=== PATIENT | male | born 1940 | race Caucasian/White ===

== ENCOUNTER 2018-01-28 13:59 | Emergency (ER) | payer SELFPAY ==
[2018-01-28 14:07] VITALS: BMI 27.4
[2018-01-28 15:26] LABS: BASO % 0.2 % (0.0-2.0); EOS # 0.2 K/uL (0.0-0.7); HEMOGLOBIN 10.8 g/dL (12.0-18.0); LYMPH # 1.6 K/uL (1.0-4.3); LYMPH % 36.5 % (20.0-40.0); MEAN CORPUSCULAR HEMOGLOBIN 22.5 pg (27.0-31.0); MEAN CORPUSCULAR HGB CONC 31.7 g/dL (33.0-37.0); MEAN PLATELET VOLUME 10.2 fL (7.2-11.7); MONO # 0.4 K/uL (0.0-0.8); MONO % 10.1 % (0.0-10.0); NEUT # 2.2 K/uL (1.8-7.0); NEUT % 49.2 % (50.0-75.0); RBC 4.81 Mil/uL (4.40-5.90); RED CELL DISTRIBUTION WIDTH 13.8 % (11.5-14.5); WHITE BLOOD COUNT 4.5 K/uL (4.8-10.8)
[2018-01-28 15:34] LABS: INR 1.2; PROTHROMBIN TIME 12.8 SECONDS (9.7-12.2)
[2018-01-28 15:36] LABS: ALB/GLOB RATIO 1.3 (1.0-2.1); ALBUMIN 4.4 g/dL (3.5-5.0); ALT/SGPT 22 U/L (21-72); AST/SGOT 20 U/L (17-59); BLOOD UREA NITROGEN 20 mg/dL (9-20); CALCIUM 9.2 mg/dl (8.6-10.4); GFR AFRICAN-AMERICAN > 60; GFR NON-AFRICAN AMERICAN > 60
[2018-01-28 15:45] LABS: SQUAMOUS EPITHIAL < 1 /hpf (0-5); URINE BILIRUBIN NEGATIVE (NEGATIVE); URINE BLOOD 1+ (NEGATIVE); URINE CLARITY Clear (Clear); URINE COLOR Yellow (YELLOW); URINE GLUCOSE (UA) NORMAL (Normal); URINE LEUKOCYTE ESTERASE NEG Leu/uL (Negative); URINE PROTEIN NEGATIVE (NEGATIVE); URINE UROBILINOGEN NORMAL mg/dL (0.2-1.0)
[2018-01-28 15:46] LABS: B-TYPE NATRIURETIC PEPTIDE 157 pg/mL (0-900)
[2018-01-28 16:28] VITALS: TEMP 98.8
--- NOTE | 2018-01-28 16:31 | RAD ---
HISTORY: SOB COMPARISON: Shortness of breath. TECHNIQUE: Chest PA and lateral FINDINGS: LUNGS: Increased interstitial markings which may represent interstitial edema. PLEURA: No significant pleural effusion identified. No pneumothorax apparent. CARDIOVASCULAR: Cardiomegaly. Likely interstitial edema. OSSEOUS STRUCTURES: No significant abnormalities. VISUALIZED UPPER ABDOMEN: Normal. OTHER FINDINGS: None. IMPRESSION: Cardiomegaly 80 and likely acute CHF with mild interstitial edema.
--- NOTE | 2018-01-28 16:47 | C.PDOC ---
History Of Present Illness 77 y/o male presents to the ED complaining of 3 days of lower extremity edema, described as symmetrical. No history of prior lower extremity swelling in the past. Of note, patient is here visiting from [place] for a few months, and just arrived in the [place] He has no local primary doctor. Otherwise patient denies any chest pain, SOB, dizziness, weakness, headache, visual changes, fever, chills, nausea, vomiting, or other complaints. Family notes that patient's PMHx includes diabetes mellitus, for which he is compliant with medications but does not regularly check sugar. Time Seen by Provider: 01/28/18 14:40 Chief Complaint (Nursing): Lower Extremity Problem/Injury History Per: Family (sons at bedside, interpreting in Upper Sorbian) History/Exam Limitations: no limitations Onset/Duration Of Symptoms: Days (x3) Current Symptoms Are (Timing): Still Present Severity: None Pain Scale Rating Of: 0 Recent travel outside of the [place]: Yes ([place]) Past Medical History Reviewed: Historical Data, Nursing Documentation, Vital Signs Vital Signs: Last Vital Signs Temp 98.8 F 01/28/18 16:28 Pulse 73 01/28/18 16:28 Resp 16 01/28/18 16:28 BP 113/64 01/28/18 16:28 Pulse Ox 96 01/28/18 17:21 - Medical History PMH: Diabetes Surgical History: No Surg Hx Family History: States: No Known Family Hx - Social History Hx Tobacco Use: No Hx Alcohol Use: No Hx Substance Use: No - Immunization History Hx Tetanus Toxoid Vaccination: No Hx Influenza Vaccination: No Hx Pneumococcal Vaccination: No Review Of Systems Except As Marked, All Systems Reviewed And Found Negative. Constitutional: Negative for: Fever, Chills Eyes: Negative for: Vision Change Cardiovascular: Negative for: Chest Pain Respiratory: Negative for: Shortness of Breath Gastrointestinal: Negative for: Nausea, Vomiting Musculoskeletal: Positive for: Other (bilateral LE edema) Neurological: Negative for: Weakness, Numbness, Headache, Dizziness Physical Exam - Physical Exam Appears: Non-toxic, No Acute Distress Skin: Normal Color, Warm, Dry Head: Atraumatic, Normacephalic Eye(s): bilateral: Normal Inspection, PERRL, EOMI Neck: Normal ROM, Trachea Midline, Supple Chest: Symmetrical, No Deformity, No Tenderness Cardiovascular: No Murmur, No JVD, Other (Questionable S3) Respiratory: Normal Breath Sounds, No Accessory Muscle Use, No Rales, No Rhonchi , No Wheezing, Other (No respiratory distress) Gastrointestinal/Abdominal: Soft, No Tenderness, No Guarding, No Rebound, Other (obese abdomen) Extremity: Normal ROM, No Calf Tenderness, No Deformity, Swelling (Pitting edema 2/4 to the knees, symmetric bilaterally) Pulses: Left Dorsalis Pedis: Normal, Right Dorsalis Pedis: Normal Neurological/Psych: Oriented x3, Normal Speech, Normal Cranial Nerves, Normal Motor, Normal Sensation, Other (No focal deficits) Gait: Steady ED Course And Treatment - Laboratory Results Result Diagrams: 01/28/18 15:14 01/28/18 15:14 Lab Interpretation: Abnormal (+ microcytic anemia, + glu, A1c 7.3 H) ECG: Interpreted By Me, Viewed By Me ECG Rhythm: Sinus Rhythm ECG Interpretation: Normal Rate From EC O2 Sat by Pulse Oximetry: 96 (RA) Pulse Ox Interpretation: Normal - Radiology CXR: Read By Radiologist CXR Interpretation: Yes: Cardiomegaly (Cardiomegaly 80 and likely acute CHF with mild interstitial edema) Reevaluation Time: 17:00 (after IV lasix) Reassessment Condition: Improved - Physician Consult Information Time Consulting Physician Contacted: 17:14 Physician Contacted: Mag Garza Outcome Of Conversation: Discussed w/ Dr. Garza- Hospitalist covering Uninsured pt's, ok to admit. Medical Decision Making Medical Decision Making: Initial Plan: * EKG * Labs * Chest x-ray * Lasix 20 mg IVP EKG and CXR reviewed. Paged hospitalist on-call to discuss admission. Patient and family informed of diagnostic results and agree with plan for admission. 1730; pt and family have now decided to be d/c to f/u as opt w Dr. Monson Disposition Discussed With : Mag Garza Doctor Will See Patient In The: Office Counseled Patient/Family Regarding: Studies Performed, Diagnosis - Disposition Disposition: HOSPITALIZED Disposition Time: 17:15 Condition: STABLE - Clinical Impression Clinical Impression: Leg edema, CHF (congestive heart failure) - Scribe Statement The provider has reviewed the documentation as recorded by the Scribe (Priya Duarte) Provider Attestation: All medical record entries made by the Scribe were at my direction and personally dictated by me. I have reviewed the chart and agree that the record accurately reflects my personal performance of the history, physical exam, medical decision making, and the department course for this patient. I have also personally directed, reviewed, and agree with the discharge instructions and disposition.
--- NOTE | 2018-01-28 17:12 | C.PDOC ---
Time Seen by Provider: 01/28/18 14:40 Chief Complaint (Nursing): Lower Extremity Problem/Injury Past Medical History Vital Signs: Last Vital Signs Temp 98.2 F 01/28/18 14:08 Pulse 73 01/28/18 15:05 Resp 17 01/28/18 15:05 BP 137/78 01/28/18 15:05 Pulse Ox 98 01/28/18 15:05 - Social History Hx Alcohol Use: No Hx Substance Use: No - Immunization History Hx Tetanus Toxoid Vaccination: No Hx Influenza Vaccination: No Hx Pneumococcal Vaccination: No ED Course And Treatment - Laboratory Results Result Diagrams: 01/28/18 15:14 01/28/18 15:14 Lab Interpretation: Abnormal (+ microcytic anemia, + glu, A1c 7.3 H) ECG: Interpreted By Ma ECG Rhythm: Sinus Rhythm ECG Interpretation: Normal Rate From EC O2 Sat by Pulse Oximetry: 98 Pulse Ox Interpretation: Normal - Radiology CXR: Interpreted by Ma CXR Interpretation: Yes: Heart Size, Other (+ mild cephalization) Progress Note: lasix IV Reevaluation Time: 17:14 Reassessment Condition: Improved - Physician Consult Information Outcome Of Conversation: 1700: d/w Dr. Garza- Hospitalist covering Uninsured pt 's, ok to admit. Medical Decision Making Medical Decision Making: consider CHF poorly controlled DM no FS machine @ home. Disposition Doctor Will See Patient In The: Hospital Counseled Patient/Family Regarding: Studies Performed, Diagnosis - Disposition Disposition: HOME/ ROUTINE Disposition Time: 17:15 Condition: GOOD - Clinical Impression Clinical Impression: Leg edema, CHF (congestive heart failure)
[2018-01-28 17:54] VITALS: BP 116/70; PULSE 69; RESP 17; O2SAT 99
--- NOTE | 2018-01-29 22:24 | CARD ---
APPROVED REPORT EKG Measurement Heart [id number] [id number] <Conclusion> Normal sinus rhythm Normal ECG
== END 2018-01-28 17:54 | disposition home or self-care (01) ==
LOC: C.ER 13:59 → UNDOADMIN 17:12 → C.9E 17:12 → C.ER 17:54
DX: I50.9 Heart failure, unspecified (principal); R60.0 Localized edema
CPT/HCPCS: 71046; 80053; 81001; 83036; 83880; 84484; 85025; 85610; 85730; 93005; 96374; 99285; J1940